=== PATIENT | female | born 2000 ===

== ENCOUNTER 2025-08-29 07:06 | Emergency (ER) | payer SELFPAY ==
[~2025-08-29] VITALS: Ht 170.2 cm; Wt 129.1 kg
[2025-08-29 07:18] VITALS: BP 131/82; TEMP 97.6; O2SAT 100
== END 2025-08-29 07:45 | disposition left against medical advice (07) ==
LOC: M ED 07:06
DX: Z53.21 Procedure and treatment not carried out due to patient leaving prior to being seen by health care provider (principal)